=== PATIENT | male | born 1980 | race Caucasian/White ===

== ENCOUNTER 2016-08-12 21:32 | Emergency (ER) | payer BC ==
[2016-08-12] MEDS ORDERED: Lidocaine 1% 20 ML MDV INJECT ONE (21:38)
[2016-08-12] MEDS ORDERED: Diphtheria,Pertussis(Acell),Tetanus Vaccine 0.5 ML Syringe IM ONE (21:38)
[2016-08-12] MEDS ORDERED: Bacitracin Oint 1 GM U/D Packet TOP ONE (21:39)
--- NOTE | 2016-08-12 21:42 | EDM.PDOC ---
ED HPI GENERAL MEDICAL PROBLEM - General Chief Complaint: Laceration Stated Complaint: LACERATION RT LEG Time Seen by Provider: 08/12/16 21:37 - History of Present Illness INITIAL COMMENTS - FREE TEXT/NARRATIVE: HISTORY AND PHYSICAL: History of present illness: The patient is a healthy 36-year-old male who is unsure of his last tetanus shot in presents after cutting his right thigh with a meat grinder while at home. Patient denies any other injuries and complains of pain only localized at the site of the laceration. He has no neurosensory changes in the distal leg. Review of systems: As per history of present illness and below otherwise all systems reviewed and negative. Past medical history: As per history of present illness and as reviewed below otherwise noncontributory. Surgical history: As per history of present illness and as reviewed below otherwise noncontributory. Social history: No reported history of drug or alcohol abuse. Family history: As per history of present illness and as reviewed below otherwise noncontributory. Physical exam: General: Well-developed well-nourished man who is nontoxic and vital signs have been reviewed by me HEENT: Atraumatic, normocephalic, negative for conjunctival pallor or scleral icterus, mucous membranes moist, throat clear, neck supple, nontender, trachea midline. Lungs: Clear to auscultation, breath sounds equal bilaterally, chest nontender. Heart: S1S2, regular, negative for clicks, rubs, or JVD. Abdomen: Soft, nondistended, nontender. NABS Pelvis: Stable nontender. Genitourinary: Deferred. Rectal: Deferred. Extremities: Atraumatic except for a 4.5 cm laceration that goes to the subcutaneous fat in the anterior thigh area with clean edges and no soft tissue swelling or compartment swelling. Full range of motion of all extremities and the legs are, negative for cords or calf pain. Neurovascular unremarkable. Neuro: Awake, alert, oriented. Cranial nerves II through XII unremarkable. Cerebellum unremarkable. Motor and sensory unremarkable throughout. Exam nonfocal. Diagnostics: Therapeutics: Tdap, wound care Procedure note: After the procedure was explained to the patient in the area was cleansed by nursing 1% lidocaine with epinephrine was infused in the wound is explored. No foreign bodies were appreciated and the skin edges were approximated using a total number of # 8 sutures of 3-0 nylon. Sutures were placed in simple interrupted fashion. Procedure was performed by Mara Jenkins MONORAIL CHARGER OPERATOR. There were no complications and the patient tolerated the procedure well. Dressing was applied by nursing Impression: Laceration right thigh Definitive disposition and diagnosis as appropriate pending reevaluation and review of above. Right Upper Leg Pain Score (Numeric/FACES): 5 - Related Data Allergies Allergy/AdvReac Type Severity Reaction Status Date / Time No Known Allergies Allergy Verified 08/12/16 21:34 Home Meds: Home Meds . [No Known Home Meds] 04/04/14 [History] Past Medical History HEENT History: Reports: None Cardiovascular History: Reports: None Respiratory History: Other Respiratory History: "going to be tested for sleep apnea" Gastrointestinal History: Reports: GERD Genitourinary History: Reports: None Musculoskeletal History: Reports: None Neurological History: Reports: None Psychiatric History: Reports: None Endocrine/Metabolic History: Reports: Obesity/BMI 30+ Hematologic History: Reports: None Immunologic History: Reports: None Oncologic (Cancer) History: Reports: None Dermatologic History: Reports: None - Past Surgical History Head Surgeries/Procedures: Reports: None GI Surgical History: Reports: Cholecystectomy Social & Family History - Tobacco Use Smoking Status *Q: Never Smoker Second Hand Smoke Exposure: No - Alcohol Use Days Per Week of Alcohol Use: 0 - Recreational Drug Use Recreational Drug Use: No Drug Use in Last 12 Months: No ED ROS GENERAL - Review of Systems Review Of Systems: ROS reveals no pertinent complaints other than HPI. ED EXAM, SKIN/RASH Exam: See Below (See dictation) Course - Vital Signs Last Recorded V/S: Last Vital Signs Temp 36.4 C 08/12/16 21:34 Pulse 83 08/12/16 21:34 Resp 16 08/12/16 21:34 BP 170/90 H 08/12/16 21:34 Pulse Ox 99 08/12/16 21:34 - Orders/Labs/Meds Orders: Active Orders 24 hr Category Date Time Status Vaccines to be Administered [RC] PER UNIT ROUTINE Care 08/12/16 21:38 Active Meds: Medications Discontinued Medications Generic Name Dose Route Start Last Admin Trade Name Freq PRN Reason Stop Dose Admin Bacitracin 1 dose 08/12/16 21:39 08/12/16 21:49 Bacitracin Oint 1 Gm TOP 08/12/16 21:40 1 dose ONETIME ONE Administration Diphtheria/Tetanus/Acell Pertussis 0.5 ml 08/12/16 21:38 08/12/16 21:49 Adacel IM 08/12/16 21:39 0.5 ml .ONCE ONE Administration Lidocaine/Epinephrine Confirm 08/12/16 21:45 08/12/16 21:49 Xylocaine 1% With Epinephrine 1:100,000 Administered 08/12/16 21:46 3 ml Dose Administration 20 ml .ROUTE .STK-MED ONE Lidocaine/Epinephrine 20 ml 08/12/16 21:48 08/12/16 21:50 Xylocaine 1% With Epinephrine 1:100,000 INJECT 08/12/16 21:49 Not Given ONETIME ONE Departure - Departure Time of Disposition: 22:15 Disposition: Home, Self-Care 01 Condition: good Clinical Impression: Laceration of right thigh Qualifiers: Encounter type: initial encounter Qualified Code(s): S71.111A - Laceration without foreign body, right thigh, initial encounter - Discharge Information Instructions: Laceration Care, Adult Referrals: Frederic Musa MD [Primary Care Provider] - Forms: ED Department Discharge Additional Instructions: The following information is given to patients seen in the emergency department who are being discharged to home. This information is to outline your options for follow-up care. We provide all patients seen in our emergency department with a follow-up referral. The need for follow-up, as well as the timing and circumstances, are variable depending upon the specifics of your emergency department visit. If you don't have a primary care physician on staff, we will provide you with a referral. We always advise you to contact your personal physician following an emergency department visit to inform them of the circumstance of the visit and for follow-up with them and/or the need for any referrals to a consulting specialist. The emergency department will also refer you to a specialist when appropriate. This referral assures that you have the opportunity for followup care with a specialist. All of these measure are taken in an effort to provide you with optimal care, which includes your followup. Under all circumstances we always encourage you to contact your private physician who remains a resource for coordinating your care. When calling for followup care, please make the office aware that this follow-up is from your recent emergency room visit. If for any reason you are refused follow-up, please contact the emergency department at and ask to speak to the emergency department charge nurse. [facility]- Internal Medicine and Family [address] [id number] Please keep area clean and dry for next 24 hours then he may wash with mild soap and water pat dry and apply bacitracin or Neosporin. Apply the ointment only for the next 3 days and then stop the ointment. Sutures should be removed in 7-10 days. Please follow up with her family as needed and return to ER for suture removal or your primary for suture removal. Please try to reduce stressful activities as we discussed with the right leg for the next 2 days. - My Orders Last 24 Hours: My Active Orders 08/12/16 21:38 Vaccines to be Administered [RC] PER UNIT ROUTINE - Assessment/Plan Last 24 Hours: My Active Orders 08/12/16 21:38 Vaccines to be Administered [RC] PER UNIT ROUTINE
[2016-08-12] MEDS ORDERED: Lidocaine 1% with EPINEPHrine 1:100,000 20 ML MDV ONE (21:45)
[2016-08-12] MEDS ORDERED: Lidocaine 1% with EPINEPHrine 1:100,000 20 ML MDV INJECT ONE (21:48)
[2016-08-12 22:21] VITALS: BP 120/70
== END 2016-08-12 22:19 | disposition home or self-care (01) ==
LOC: MW.ED 21:32
DX: S71.111A Laceration without foreign body, right thigh, initial encounter (principal); Z23 Encounter for immunization; W29.0XXA Contact with powered kitchen appliance, initial encounter; Y92.009 Unspecified place in unspecified non-institutional (private) residence as the place of occurrence of the external cause; K21.9 Gastro-esophageal reflux disease without esophagitis; E66.9 Obesity, unspecified; Z90.49 Acquired absence of other specified parts of digestive tract
CPT/HCPCS: 12002; 90471; 90715; 99282; 99282-25

== ENCOUNTER 2019-02-07 06:50 | Day surgery (SDC) | payer BC ==
[~2019-02-07 06:50] MED LIST: Lactated Ringers 1,000 ML IV SCH; Sodium Chloride 0.9% 10 ML SDV IV PRN; Sodium Chloride 0.9% 10 ML Syringe FLUSH PRN; Sodium Chloride 0.9% 2.5 ML Syringe FLUSH PRN; ceFAZolin 2 GM in Premix Bag 1 BAG IV ONE
[2019-02-07] MEDS ORDERED: Bupivacaine 0.5% 30 ML SDV ONE (07:27)
--- NOTE | 2019-02-07 07:33 | PCM.PREANE ---
Preanesthetic Assessment - Anesthesia/Transfusion/Family Hx Anesthesia History: Prior Anesthesia Without Reaction Family History of Anesthesia Reaction: No Transfusion History: No Prior Transfusion(s) Intubation History: Unknown - Review of Systems General: No Symptoms Pulmonary: No Symptoms Cardiovascular: No Symptoms Gastrointestinal: No Symptoms Neurological: No Symptoms Other: Reports: None - Physical Assessment Height: 5 ft 8 in Weight: 104.326 kg ASA Class: 2 Mental Status: Alert & Oriented x3 Airway Class: Mallampati = 2 Dentition: Reports: Normal Dentition Thyro-Mental Finger Breadths: 3 Mouth Opening Finger Breadths: 2 ROM/Head Extension: Full Lungs: Clear to Auscultation, Normal Respiratory Effort Cardiovascular: Regular Rate, Regular Rhythm - Allergies Allergies/Adverse Reactions: Allergies Allergy/AdvReac Type Severity Reaction Status Date / Time No Known Allergies Allergy Verified 02/01/19 15:42 - Blood Blood Available: No - Anesthesia Plan Pre-Op Medication Ordered: None - Acknowledgements Anesthesia Type Planned: General Anesthesia Pt an Appropriate Candidate for the Planned Anesthesia: Yes Alternatives and Risks of Anesthesia Discussed w Pt/Guardian: Yes Pt/Guardian Understands and Agrees with Anesthesia Plan: Yes PreAnesthesia Questionnaire HEENT History: Reports: Allergic Rhinitis, Other (See Below) Other HEENT History: wears glasses/contacts Cardiovascular History: Reports: None Respiratory History: Reports: Sleep Apnea Other Respiratory History: uses CPAP Gastrointestinal History: Reports: GERD Genitourinary History: Reports: None Musculoskeletal History: Reports: Back Pain, Chronic Neurological History: Reports: Concussion Other Neuro History: hx of motion sickness Psychiatric History: Reports: None Endocrine/Metabolic History: Reports: Obesity/BMI 30+ (BMI 35) Hematologic History: Reports: None Immunologic History: Reports: None Oncologic (Cancer) History: Reports: None Dermatologic History: Reports: None - Past Surgical History GI Surgical History: Reports: Cholecystectomy Male Surgical History: Reports: Vasectomy - SUBSTANCE USE Smoking Status *Q: Never Smoker Recreational Drug Use History: No - HOME MEDS Home Medications: Home Meds Fexofenadine/Pseudoephedrine [Evita-D 12 Hour] 1 tab PO BID PRN 02/01/19 [ History] Sildenafil Citrate 40 - 80 mg PO ASDIRECTED PRN 02/01/19 [History] - CURRENT (IN HOUSE) MEDS Current Meds: Current Medications Lactated Ringer's (Ringers, Lactated) 1,000 mls @ 125 mls/hr IV ASDIRECTED [place] Sodium Chloride (Saline Flush) 10 ml FLUSH ASDIRECTED PRN PRN Reason: Keep Vein Open Sodium Chloride (Saline Flush) 2.5 ml FLUSH ASDIRECTED PRN PRN Reason: Keep Vein Open Sodium Chloride (Normal Saline) 10 ml IV ASDIRECTED PRN PRN Reason: IV Use Discontinued Medications Bupivacaine HCl (Marcaine 0.5%) Confirm Administered Dose 30 ml .ROUTE .STK-MED ONE Stop: 02/07/19 07:28 Cefazolin Sodium/Dextrose 2 gm (/ Premix) 50 mls @ 100 mls/hr IV ONETIME ONE Stop: 02/06/19 08:41
[2019-02-07] MEDS ORDERED: Lidocaine 2% 5 ML SDV ONE (07:42)
[2019-02-07] MEDS ORDERED: Dexamethasone 4 MG/ML 5 ML MDV ONE (07:42)
[2019-02-07] MEDS ORDERED: Ketorolac 30 MG/ML SDV ONE (07:42)
[2019-02-07] MEDS ORDERED: Ondansetron 4 MG/2 ML SDV ONE (07:42)
[2019-02-07] MEDS ORDERED: fentaNYL 250 MCG/5 ML SDV ONE (07:43)
[2019-02-07] MEDS ORDERED: Propofol 200 MG/20 ML SDV ONE (07:43)
[2019-02-07] MEDS ORDERED: Midazolam 1 MG/ML 2 ML SDV ONE (07:43)
[2019-02-07] MEDS ORDERED: Atropine 0.1 MG/ML 10 ML Syringe IVPUSH PRN ×2 (08:44)
[2019-02-07] MEDS ORDERED: Albuterol 0.083% 2.5 MG/3 ML Neb Soln NEB PRN (08:44)
[2019-02-07] MEDS ORDERED: Naloxone 0.4 MG/ML Syringe IVPUSH PRN (08:44)
[2019-02-07] MEDS ORDERED: fentaNYL 100 MCG/2 ML SDV IVPUSH PRN (08:44)
[2019-02-07] MEDS ORDERED: EPINEPHrine 1:10,000 1 MG/10 ML Syringe IVPUSH PRN (08:44)
[2019-02-07] MEDS ORDERED: 50% Dextrose in Water 50 ML Syringe IVPUSH PRN (08:44)
[2019-02-07] MEDS ORDERED: Octyl 2-Cyanoacrylate 1 Tube ONE (08:51)
--- NOTE | 2019-02-07 09:16 | PCM.OPNOTE ---
- General Post-Op/Procedure Note Date of Surgery/Procedure: 02/07/19 Operative Procedure(s): Umbilical hernia repair Findings: Umbilical hernia containing small bowel Pre Op Diagnosis: Umbilical hernia, reducible Post-Op Diagnosis: same Anesthesia Technique: General ET Tube Primary Surgeon: Balbina Bunch Fluid Replacement, Intraop: 1,000 EBL in mLs: 5 Condition: Good
--- NOTE | 2019-02-07 09:34 | PCM.POSTAN ---
POST ANESTHESIA ASSESSMENT - MENTAL STATUS Mental Status: Alert, Oriented - VITAL SIGNS Vital Signs: Last Vital Signs Temp 36.5 C 02/07/19 09:05 Pulse 83 02/07/19 09:25 Resp 13 02/07/19 09:25 BP 133/75 02/07/19 09:25 Pulse Ox 96 02/07/19 09:25 - RESPIRATORY Respiratory Status: Respiratory Rate WNL, Airway Patent, O2 Saturation Stable - CARDIOVASCULAR CV Status: Pulse Rate WNL, Blood Pressure Stable - GASTROINTESTINAL GI Status: No Symptoms - PAIN Pain Score: 0 - POST OP HYDRATION Hydration Status: Adequate & Stable
--- NOTE | 2019-02-07 11:06 | PCM48HPAN ---
Post Anesthesia Note - EVALUATION WITHIN 48HRS OF ANESTHETIC Vital Signs in Normal Range: Yes Patient Participated in Evaluation: Yes Respiratory Function Stable: Yes Airway Patent: Yes Cardiovascular Function Stable: Yes Hydration Status Stable: Yes Pain Control Satisfactory: Yes Nausea and Vomiting Control Satisfactory: Yes Mental Status Recovered: Yes Vital Signs: Last Vital Signs Temp 36.5 C 02/07/19 09:05 Pulse 83 02/07/19 09:25 Resp 13 02/07/19 09:25 BP 133/75 02/07/19 09:25 Pulse Ox 96 02/07/19 09:25 - COMMENTS/OBSERVATIONS Free Text/Narrative:: no anesthesia problems
[2019-02-07 11:58] VITALS: BP 122/74; PULSE 72
--- NOTE | 2019-02-07 14:56 | OR ---
SURGEON: BALBINA BUNCH MD DATE OF PROCEDURE: 02/07/2019 PREOPERATIVE DIAGNOSIS: Umbilical hernia, reducible. POSTOPERATIVE DIAGNOSIS: Umbilical hernia, reducible. PROCEDURE PERFORMED: Umbilical hernia repair. PRIMARY SURGEON: Balbina Bunch MD. ANESTHESIA: General endotracheal anesthesia. FLUIDS: 1000 mL of crystalloid. ESTIMATED BLOOD LOSS: 5 mL. FINDINGS: 1 cm periumbilical defect. Hernia sac containing small bowel. COMPLICATIONS: None. INDICATIONS: The patient is a 38-year-old male who presents with a symptomatic umbilical hernia. I explained the need for repair. I explained the expected perioperative course as well as the risks including bleeding, infection, or damage to surrounding structures. He verbalized understanding and wishes to proceed. PROCEDURE IN DETAIL: The patient was brought into the OR and placed on the OR table in supine position. A time-out was completed verifying the patient's name, age, date of , allergies, and procedure to be performed. General endotracheal anesthesia was induced. The abdomen was prepped and draped in usual standard fashion. I anesthetized the supraumbilical fold as well as the supraumbilical midline with 0.5% Marcaine plain. A 15 blade was used to make an incision along the left side of the supraumbilical fold and was carried along the supraumbilical midline. Cautery was used to dissect down to the level of the subcutaneous fat. Upon entering the subcutaneous fat, I noted a hernia sac which was located at the 2 o'clock position on the umbilicus. Using Metzenbaum scissors, I cleared away the hernia sac from the surrounding tissue. This was carried all the way to the level of the fascia. The hernia sac was larger than expected. I began to clear away the fascia around the hernia sac site. I then entered the hernia sac and immediately noted small bowel contained within this. Care was taken to avoid damage to the bowel and it was reduced back into the abdomen. The hernia sac was then reduced back into the abdomen as well, and I cleared away the underside of the fascia using sharp dissection as well as gentle blunt dissection with a hemostat. Once the fascia was cleared away completely, both above and below the hernia sac, it was measured. The fascial defect was 1 cm in size. Given its small size, the decision was made to close it primarily with interrupted nonabsorbable suture. Interrupted 0 Ethibond sutures were placed taking great care not to involve any of the small bowel underneath my fascial site. These were then sutured shut, and I inspected my operative field. Hemostasis was then achieved with electrocautery. Once the wound was found to be hemostatic and the fascia closed appropriately, I began to close the incision site. The subcutaneous fat layer was closed with interrupted 3-0 Vicryl sutures. The skin was then closed with a running 4-0 Monocryl stitch. Dermabond and sterile dressings were applied. The patient tolerated the procedure well and was transferred to the PACU in stable condition. All counts were complete and correct at the end of the case. OLGA EMERSON /[id number]
== END 2019-02-07 11:15 | disposition home or self-care (01) ==
LOC: MW.SDS 06:50
PROVIDERS: ATTEND Surgery
DX: K42.9 Umbilical hernia without obstruction or gangrene (principal); M54.17 Radiculopathy, lumbosacral region; K21.9 Gastro-esophageal reflux disease without esophagitis; G47.33 Obstructive sleep apnea (adult) (pediatric); E66.9 Obesity, unspecified; Z68.35 Body mass index [BMI] 35.0-35.9, adult; Z88.8 Allergy status to other drugs, medicaments and biological substances; Z99.89 Dependence on other enabling machines and devices
CPT/HCPCS: 49585; A9270; J1100; J1885; J2001; J2250; J2405; J2704; J3010; J3490; J7120